=== PATIENT | male | born 1945 | race Caucasian/White ===

== ENCOUNTER → 2018-01-23 | Outpatient (CLI) | payer OTHER, BC ==
[~2018-01-23] VITALS: Ht 180.3 cm; Wt 81.6 kg
[~2018-01-23] MED LIST: AMLODIPINE BESY10 MG PO; CLARITIN,ALAVAR10 MG PO; FLUOXETINE HCL20 MG PO; FLUTICASONE PRO16 GM BOTH NARES; LOSARTAN-HCTZ1 EACH PO; MECLIZINE HCL25 MG PO; PANTOPRAZOLE SO40 MG PO; PROLIA60 MG/1 ML SC; VITAMIN D1000 INTUN PO
[2018-01-23 11:56] LABS: CHLORIDE 99 MEQ/L (99-109); CREATININE 1.1 MG/DL (0.6-1.3); GFR ESTIMATE (CALCULATED) > 59 mL/min/ (58.99-99999); GLUCOSE 116 mg/dL (70-99); POTASSIUM 3.4 MEQ/L (3.7-5.4); SODIUM 139 MEQ/L (136-147); UREA NITROGEN (BUN) 12 mg/dL (9-23)
== END | disposition home or self-care (01) ==
LOC: AMB 10:45
PROVIDERS: Anesthesiology; Internal Medicine Gastroenterology
PROC: 0DJ08ZZ Inspection of Upper Intestinal Tract, Via Natural or Artificial Opening Endoscopic (ICD-10-PCS; principal; 2018-01-23)
DX: C15.9 Malignant neoplasm of esophagus, unspecified (principal); R13.10 Dysphagia, unspecified; Z80.0 Family history of malignant neoplasm of digestive organs; R10.13 Epigastric pain; K43.9 Ventral hernia without obstruction or gangrene; K21.9 Gastro-esophageal reflux disease without esophagitis; Z88.5 Allergy status to narcotic agent
CPT/HCPCS: 80048; 82948; 93005; J3010

== ENCOUNTER 2018-01-27 12:11 | Emergency (ER) | payer OTHER, BC ==
[~2018-01-27] VITALS: Ht 180.3 cm; Wt 81.0 kg
[2018-01-27 12:47] LABS: HEMATOCRIT 40.8 % (38.0-50.0); HEMOGLOBIN 14.5 G/DL (12.5-16.6); MCH 30.8 PG (29.0-34.0); MCHC 35.5 G/DL (30.0-36.0); MCV 86.6 FL (86-99); PLATELET COUNT 294 K/uL (156-360); RBC DIS.WIDTH-CV 12.4 % (11.8-14.6); RBC DIS.WIDTH-SD 39.3 % (39-53); RED BLOOD COUNT 4.71 M/uL (4.00-5.50); WHITE BLOOD COUNT 10.2 K/uL (4.1-10.2)
[2018-01-27 12:56] LABS: CHLORIDE 96 mEq/L (99-109); POTASSIUM 3.4 mEq/L (3.7-5.4); SODIUM 136 mEq/L (136-147)
[2018-01-27 12:58] LABS: GLUCOSE 97 mg/dL (70-99)
[2018-01-27 13:02] LABS: CREATININE 1.1 mg/dL (0.6-1.3); GFR ESTIMATE (CALCULATED) > 59 mL/min/ (58.99-99999); UREA NITROGEN (BUN) 11 mg/dL (9-23)
[2018-01-27 13:56] LABS: APPEARANCE CLEAR ((CLEAR)); BILIRUBIN NEGATIVE; BLOOD NEGATIVE; COLOR STRAW ((YELLOW)); GLUCOSE (STRIP) NEGATIVE; KETONES 5; LEUKOCYTES NEGATIVE; NITRITE NEGATIVE; PROTEIN (STRIP) NEGATIVE; SPECIFIC GRAVITY 1.006 (1.000-1.030); UCUL ADDED? NO; UROBILINOGEN 0.2 MG/DL (0.2-1.0)
[2018-01-27] MEDS ORDERED: PERCOCET 5/31 TABLET PO (15:16)
[2018-01-27 15:48] VITALS: BP 154/108
== END 2018-01-27 15:49 | disposition home or self-care (01) ==
LOC: EME 12:11
PROVIDERS: Emergency Medicine
DX: R30.0 Dysuria (principal); R10.30 Lower abdominal pain, unspecified; R35.0 Frequency of micturition; K57.30 Diverticulosis of large intestine without perforation or abscess without bleeding; N20.0 Calculus of kidney; I10 Essential (primary) hypertension; Z87.442 Personal history of urinary calculi; Z85.01 Personal history of malignant neoplasm of esophagus
CPT/HCPCS: 74176; 80048; 81003; 85027; 87086; 99281; 99284

== ENCOUNTER → 2018-05-27 | Outpatient (CLI) | payer OTHER, BC ==
[~2018-05-27] MED LIST changes: +PERCOCET 5/31 TABLET PO
== END | disposition home or self-care (01) ==
LOC: EKG 13:44
DX: Z01.810 Encounter for preprocedural cardiovascular examination (principal); C15.5 Malignant neoplasm of lower third of esophagus; I10 Essential (primary) hypertension; R01.1 Cardiac murmur, unspecified; G43.909 Migraine, unspecified, not intractable, without status migrainosus; Z86.79 Personal history of other diseases of the circulatory system; Z92.21 Personal history of antineoplastic chemotherapy; Z92.3 Personal history of irradiation; I27.20 Pulmonary hypertension, unspecified; I06.0 Rheumatic aortic stenosis
CPT/HCPCS: 93306